=== PATIENT | female | born 1990 | race Caucasian/White ===

== ENCOUNTER 2019-03-17 15:15 | Emergency (ER) | payer BC ==
[2019-03-17 15:38] VITALS: BP 138/92; PULSE 93; RESP 18; TEMP 98.4
--- NOTE | 2019-03-17 16:16 | ED ---
Recheck HPI - General Chief Complaint: Recheck/Abnormal Lab/Rx Stated Complaint: irregular Blood Pressure/sent over from [facility] care Time Seen by Provider: 03/17/19 15:44 Source: patient Mode of arrival: ambulatory Limitations: no limitations - History of Present Illness Initial Comments: 29-year-old female with history of previous diagnosis of hypertension presenting to the emergency department for evaluation after having elevated BP reading at physical threapy 130's/110 per patient. Patient has no complaints. Patient states she has not had issues with her blood pressure since she lost a lot of weight.Patient denies any recent fever, chills, shortness of breath, chest pain, back pain, abdominal pain, nausea or vomiting, his urination, numbness or tingling, dysuria or hematuria, constipation or diarrhea, headaches or visual changes, or any other complaints. - Related Data Allergies Allergy/AdvReac Type Severity Reaction Status Date / Time No Known Allergies Allergy Verified 03/17/19 15:37 Review of Systems ROS Statement: Those systems with pertinent positive or pertinent negative responses have been documented in the HPI. ROS Other: All systems not noted in ROS Statement are negative. Past Medical History Past Medical History: Hypertension History of Any Multi-Drug Resistant Organisms: None Reported Past Surgical History: Bariatric Surgery, Orthopedic Surgery Additional Past Surgical History / Comment(s): lt ankle., D&C Past Psychological History: Depression Smoking Status: Never smoker Past Alcohol Use History: Rare Past Drug Use History: None Reported General Exam - General Exam Comments Initial Comments: General: The patient is awake and alert, in no distress, and does not appear acutely ill. Eye: +upils are equal, round and reactive to light, extra-ocular movements are intact. No nystagmus. There is normal conjunctiva bilaterally. No signs of icterus. Ears, nose, mouth and throat: There are moist mucous membranes and no oral lesions. Neck: The neck is supple, there is no tenderness or JVD. Cardiovascular: There is a regular rate and rhythm. No murmur, rub or gallop is appreciated. Respiratory: Lungs are clear to auscultation, respirations are non-labored, breath sounds are equal. No wheezes, stridor, rales, or rhonchi. Gastrointestinal: Soft, non-distended, non-tender abdomen without masses or organomegaly noted. There is no rebound or guarding present. Musculoskeletal: Normal ROM, no tenderness. Strength 5/5. Sensation intact. Radial pulses equal bilaterally 2+. Neurological: A&O x 3. CN II-XII intact, There are no obvious motor or sensory deficits. Coordination appears grossly intact. Speech is normal. Skin: Skin is warm and dry and no rashes or lesions are noted. Psychiatric: Cooperative, appropriate mood & affect, normal judgment. Limitations: no limitations Course Vital Signs 03/17/19 15:34 Temperature 98.4 F Pulse Rate 93 Respiratory 18 Rate Blood Pressure 138/92 O2 Sat by Pulse 100 Oximetry Medical Decision Making - Medical Decision Making 29-year-old female presenting today for elevated blood pressure. Patient has history of hypertension however resolved after weight loss. Patient has no complaints she appears well diastolic less than 110, systolic less [id number]. At this time feel patient is stable for discharge with blood pressure logging at home and follow-up with primary care provider for management of BP, return for admission discussed at length and patient was discharged appearing well after discussed the case by attending provider Dr. Garcia Disposition Clinical Impression: Elevated blood pressure reading Disposition: HOME SELF-CARE Condition: Good Instructions (If sedation given, give patient instructions): Hypertension (ED) Additional Instructions: Please keep a diary as discussed of blood pressure readings. Decrease salt intake as discussed. If BP remains elevated, experience chest pain, shortness of breath, leg swelling, nausea, headache, dizziness return to the ER, or for any toher concerns. Is patient prescribed a controlled substance at d/c from ED?: No Referrals: None,Stated [Primary Care Provider] - 1-2 days Karina Borden MD [STAFF PHYSICIAN] - 1-2 days Time of Disposition: 16:15
== END 2019-03-17 16:33 | disposition home or self-care (01) ==
LOC: EC 15:15
DX: R03.0 Elevated blood-pressure reading, without diagnosis of hypertension (principal)
CPT/HCPCS: 99283

== ENCOUNTER → 2019-10-06 | Outpatient (CLI) | payer BC ==
[2019-10-07 08:39] VITALS: BMI 37.5
== END | disposition home or self-care (01) ==
LOC: DBWHC3 15:10
PROVIDERS: ATTEND Family Medicine
DX: E28.2 Polycystic ovarian syndrome (principal)
CPT/HCPCS: 97802

== ENCOUNTER → 2020-02-10 | Outpatient (CLI) | payer BC ==
[2020-02-10 08:22] LABS: Basophils # (A) 0.1 k/uL (0-0.2); Basophils % (A) 1 %; Eosinophils # (A) 0.5 k/uL (0-0.7); Eosinophils % (A) 5 %; HCT 45.5 % (34.0-46.0); HGB 15.2 gm/dL (11.4-16.0); Lymphocytes # (A) 2.4 k/uL (1.0-4.8); Lymphocytes % (A) 25 %; MCH 30.5 pg (25.0-35.0); MCHC 33.4 g/dL (31.0-37.0); MCV 91.3 fL (80.0-100.0); Mean Platelet Volume 7.9; Monocytes # (A) 0.5 k/uL (0-1.0); Monocytes % (A) 6 %; Neutrophils # (A) 5.9 k/uL (1.3-7.7); Neutrophils % (A) 61 %; Platelet Count 277 k/uL (150-450); RBC 4.98 m/uL (3.80-5.40); WBC 9.6 k/uL (3.8-10.6)
--- NOTE | 2020-02-10 10:59 | US ---
EXAMINATION TYPE: US abdomen complete DATE OF EXAM: 02/10/2020 COMPARISON: NONE CLINICAL HISTORY: R10.9 ABD PAIN. Patient states having generalized pain for a few days after thanksg iving. EXAM MEASUREMENTS: Liver Length: 16.6 cm Gallbladder Wall: 0.1 cm CBD: 0.4 cm Spleen: 9.9 cm Right Kidney: 11.2 x 5.2 x 3.4 cm Left Kidney: 12.1 x 4.6 x 5.3 cm Pancreas: Tail obscured by overlying bowel gas Liver: There is mild attenuation of the sound wave compatible some mild fatty infiltration. Gallbladder: wnl Evidence for sonographic Barahona's sign: neg CBD: wnl Spleen: wnl Right Kidney: No hydronephrosis or masses seen Left Kidney: No hydronephrosis or masses seen Upper IVC: wnl Abd Aorta: No AAA visualized IMPRESSION: 1. Mild fatty infiltration liver. 2. Otherwise normal abdomen ultrasound
== END | disposition home or self-care (01) ==
LOC: RADUSWWP 06:58
PROVIDERS: ATTEND Family Medicine
DX: K76.0 Fatty (change of) liver, not elsewhere classified (principal)
CPT/HCPCS: 76700; 85025